=== PATIENT | female | born 1950 | race Two or more races ===

== ENCOUNTER 2017-09-30 18:37 | Emergency (ER) | payer SELFPAY ==
[~2017-09-30] VITALS: Ht 157.5 cm; Wt 80.0 kg
[2017-10-01] MEDS ORDERED: ACETAMINOPHEN 325MG TABLET PO ONE (03:15)
[2017-10-01 06:27] VITALS: BP 136/86
== END 2017-10-01 06:28 | disposition home or self-care (01) ==
LOC: ER 18:37
DX: S83.92XA Sprain of unspecified site of left knee, initial encounter (principal); S23.3XXA Sprain of ligaments of thoracic spine, initial encounter; I10 Essential (primary) hypertension; E78.00 Pure hypercholesterolemia, unspecified; Z90.710 Acquired absence of both cervix and uterus; W01.0XXA Fall on same level from slipping, tripping and stumbling without subsequent striking against object, initial encounter; Y93.89 Activity, other specified; Y92.89 Other specified places as the place of occurrence of the external cause; Y99.8 Other external cause status
CPT/HCPCS: 72070; 73562; 99284